=== PATIENT | female | born 1955 | race Caucasian/White ===

== ENCOUNTER 2021-04-29 05:54 | Day surgery (SDC) | payer MEDICARE, OTHER ==
[~2021-04-29] VITALS: Ht 168 cm; Wt 99.0 kg
[~2021-04-29 05:54] MED LIST: ADVAIR 500-501 EACH INH; AMLODIPINE BESY10 MG PO; CALCIUM PO; COZAAR100 MG PO; CYMBALTA60 MG PO; DAILY VITAMIN1 EAC2 PO; LIPITOR20 MG PO; METFORMIN HCL500 MG PO; NEURONTIN300 MG PO; PRILOSEC20 MG PO; SINGULAIR10 MG PO; SYNTHROID75 MCG PO; VITAMIN D3 PO; ZETIA10 MG PO; ZYRTEC10 MG PO
[2021-04-29] MEDS ORDERED: REQUIP1 MG PO ×2 (14:03)
--- NOTE | 2021-04-29 14:38 | NUR ---
PT HAD LEFT REVERSE TOTAL SHOULDER REPLACMENT THIS DATE. PT. WILL D/C HOME.
[2021-04-30 07:58] LABS: BASOPHIL 0.2 % (0-2); EOSINOPHIL 0.3 % (0-7); HCT 30.9 % (37.0-47.0); LYMPHOCYTE 21.3 % (15-48); MCH 29.7 pg (25.0-31.0); MCHC 32.4 g/dL (32.0-36.0); MCV 91.7 fL (78.0-100.0); MONOCYTE 8.6 % (0-12); MPV 9.1 fL (6.0-9.5); NEUTROPHIL 69.2 % (41-80); NRBC 0; PLT 213 K/uL (150-400); RBC 3.37 M/uL (4.20-5.40); RDW 12.1 % (11.5-14.0); WBC 9.6 K/uL (4.0-10.5)
[2021-04-30 08:28] LABS: BUN/CREAT RATIO (CALC) 22.8 RATIO; CREATININE 0.79 mg/dL (0.51-0.95); POTASSIUM 4.4 mmol/L (3.5-5.1)
[2021-04-30] MEDS ORDERED: ASPIRIN325 MG PO (09:06)
[2021-04-30] MEDS ORDERED: OXYCODONE-ACET1 EAC1 PO (09:06)
[2021-04-30] MEDS ORDERED: FEOSOL325 MG PO (09:06)
== END 2021-04-30 10:10 | disposition home or self-care (01) ==
LOC: FAS 05:54 → FMS 05:55 → EDSTATUS 08:30 → FAS 08:30 → FMS 10:31 → FAS 10:31 → FMS 04-30 10:10 → FAS 04-30 10:10
PROVIDERS: Legal Medicine
DX: M19.012 Primary osteoarthritis, left shoulder (principal); M75.102 Unspecified rotator cuff tear or rupture of left shoulder, not specified as traumatic; G89.18 Other acute postprocedural pain; I10 Essential (primary) hypertension; E11.9 Type 2 diabetes mellitus without complications; R01.1 Cardiac murmur, unspecified; E78.00 Pure hypercholesterolemia, unspecified; J45.909 Unspecified asthma, uncomplicated; E03.9 Hypothyroidism, unspecified; G47.30 Sleep apnea, unspecified; F32.9 Major depressive disorder, single episode, unspecified; G25.81 Restless legs syndrome; Z99.89 Dependence on other enabling machines and devices; Z98.1 Arthrodesis status; Z88.8 Allergy status to other drugs, medicaments and biological substances; Z79.84 Long term (current) use of oral hypoglycemic drugs; Z79.899 Other long term (current) drug therapy
CPT/HCPCS: 36415; 73020; 80048; 82962; 85025; 86850; 86900; 86901; 94010; 94640; 94762; 97162; 97166; 97530-GP; 97535; C1713; C1776; J0171; J0697; J1100; J1885; J2250; J2270; J2370; J2405; J2704; J2795; J3010; J7120